=== PATIENT | female | born 1945 | race Caucasian/White ===

== ENCOUNTER 2025-03-06 20:18 | Emergency (ER) | payer OTHER ==
[~2025-03-06] VITALS: Ht 170.2 cm; Wt 67.0 kg
[2025-03-06 21:05] LABS: Basophils # (auto) 0.1 10 ^3/uL (0-0.2); Basophils % (auto) 1.8 % (0.0-2.0); Eosinophils # (auto) 0.3 10 ^3/uL (0-0.8); Eosinophils % (auto) 4.8 % (0.0-7.0); Hematocrit 42.2 % (36.0-46.0); Hemoglobin 13.5 g/dL (12.2-16.2); Lymphocytes # (auto) 1.1 10 ^3/uL (0.4-5.4); Lymphocytes % (auto) 21.1 % (10.0-50.0); Mean Corpuscular Hemoglobin 28.4 pg (28.0-32.0); Mean Corpuscular Volume 88.7 fL (80.0-100.0); Monocytes # (auto) 0.6 10 ^3/uL (0-1.3); Monocytes % (auto) 11.7 % (0.0-12.0); Neutrophils # (auto) 3.2 10 ^3/uL (1.6-8.6); Neutrophils % (auto) 60.6 % (37.0-80.0); Nucleated Red Blood Cells % 0.1 %; Platelet Count (auto) 229 10^3/uL (140-450); Red Blood Cells 4.75 10^6/uL (4.0-5.20); White Blood Cell 5.3 10^3/uL (4.4-10.8)
--- NOTE | 2025-03-06 21:13 | DVH ---
CT HEAD WITHOUT CONTRAST INDICATION: Headache/hallucinations COMPARISON: None TECHNIQUE: CT of the head without intravenous contrast. RADIATION DOSE: CTDIvol: mGy, DLP: mGy*cm FINDINGS: There is no evidence of intracranial hemorrhage, large infarct, extra-axial collection, mass effect, midline shift, herniation or hydrocephalus. 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 Minimal chronic white matter microvascular ischemic change. The ventri cles, sulci and cisterns are normal. Visualized paranasal sinuses and mastoid air cells are clear. So ft tissues and osseous structures are unremarkable. IMPRESSION: No acute intracranial abnormality identified.
--- NOTE | 2025-03-06 21:21 | ED.PDOC ---
History of Present Illness HPI Comments 79 y/o F presents with c/o headache, blurry vision, and visual hallucinations for the past several weeks. She comments on being told of her provider on having hydrocephaly. Denies any additional associated symptoms at this time. Patient was mildly hypertensive at arrival. Chief Complaint: Headache Time Seen by MD: 20:25 Reviewed Notes: Nurses Notes, Medications, Allergies Allergies: Coded Allergies: Tetanus Toxoid (Verified Allergy, Unknown, 03/06/25) Information Source: Patient Mode of Arrival: PLATFORM WALKER Severity: Moderate Timing: Weeks Duration: Since onset Prehospital treatment: None Past Medical History PAST MEDICAL HISTORY: HTN Surgical History: Denies all surgeries CASTING PLUG ASSEMBLER History: No Pertinent CASTING PLUG ASSEMBLER History Family History Family History: Reviewed,noncontributory to illness, No family hx of Cancer, No family hx of DM, No family hx of Heart tahir, No family hx of HTN, No family hx ofKidney tahir, No family hx of Liver tahir, No family hx of Lung tahir, No family hx of Stroke Social History Smoker: Non-Smoker Alcohol: Denies ETOH Use Drugs: Denies Drug Use Lives In: Home Constitutional: reports: fatigue, weakness; denies: chills, diaphoresis, fever, malaise, sweats, others EENTM: denies: blurred vision, double vision, ear bleeding, ear discharge, ear drainage, ear pain, ear ringing, eye pain, eye redness, hearing loss, mouth pain, mouth swelling, nasal discharge, nose bleeding, nose congestion, nose pain, photophobia, tearing, throat pain, throat swelling, voice changes, others Respiratory: denies: cough, hemoptysis, orthopnea, SOB at rest, shortness of breath, SOB with excertion, stridor, wheezing, others Cardiovascular: denies: chest pain, dizzy spells, diaphoresis, Dyspnea on exertion, edema, irregular heart beat, left arm pain, lightheadedness, palpitations, PND, syncope, others Gastrointestinal: denies: abdomen distended, abdominal pain, blood streaked bowels, constipated, diarrhea, dysphagia, difficulty swallowing, hematemesis, melena, nausea, poor appetite, poor fluid intake, rectal bleeding, rectal pain, vomiting, others Genitourinary: denies: abnormal vagina bleeding, burning, dyspareunia, dysuria, flank pain, frequency, hematuria, incontinence, pain, , vagina discharge, urgency, others Neurological: reports: headache, others (Hallucinations); denies: dizziness, f ainting, left sided numbness, left sided weakness, numbness, paresthesia, pre- existing deficit, right sided numbness, right sided weakness, seizure, speech problems, tingling, tremors, weakness Musculoskeletal: denies: back pain, gout, joint pain, joint swelling, muscle pain, muscle stiffness, neck pain, others Integumetry: denies: bruises, change in color, change in hair/nails, dryness, laceration, lesions, lumps, rash, wounds, others Allergic/Immunocompromised: denies: Difficulty Healing, Frequent Infections, Hives, Itching, others Hematologic/Lymphatic: denies: anemia, blood clots, easy bleeding, easy bruising, swollen glands, others Endocrine: denies: excessive hunger, excessive sweating, excessive thirst, excessive urination, flushing, intolerance to cold, intolerance to heat, unexplained weight gain, unexplained weight loss, others Psychiatric: denies: anxiety, bipolar disorder, depression, hopeless, panic disorder, schizophrenia, sleepless, suicidal, others All Other Systems: Reviewed and Negative (as per HPI) Physical Exam General Appearance: Mild Distress (Patient was in moderate distress due to hallucination concerns rather than definitive pain issues.), Normal HEENT: Head (Unremarkable cranial evaluation. No signs of trauma. No skull depressions or deformities.), Normal ENT Inspection, Pharynx Normal, TMs Normal Neck: Full Range of Motion, Non-Tender, Normal, Normal Inspection Respiratory: Chest Non-Tender, Lungs Clear, No Accessory Muscle Use, No Respiratory Distress, Normal Breath Sounds Cardiovascular: No Edema, No JVD, No Murmur, No Gallop, Normal Peripheral Pulses, Regular Rate/Rhythm Breast Exam: Deferred Gastrointestinal: No Organomegaly, Non Tender, No Pulsatile Mass, Normal Bowel Sounds, Soft Genitalia: Deferred Pelvic: Deferred Rectal: Deferred Extremities: No calf tenderness, Normal capillary refill, Normal inspection, Normal range of motion, Non-tender, No pedal edema Neurologic: Alert, No Motor Deficits, Normal Affect, Normal Mood, No Sensory Deficits Cerebellar Function: NOT DONE Reflexes: NOT DONE Skin: Dry, Normal Color, Warm Lymphatic: No Adenopathy Was a procedure done? Was a procedure done?: No Differential Dx Considerations may include: encephalopathy, schizophrenic disorder, electrolyte imbalance, UTI, viral syndrome, sepsis, urosepsis X-Ray, Labs, Meds, VS Vital Signs Date Time Temp Pulse Resp B/P (MAP) Pulse Ox O2 Delivery O2 Flow Rate FiO2 03/07/25 00:46 62 03/07/25 00:25 61 17 91/63 (72) 95 03/07/25 00:24 91/63 03/06/25 23:41 200/84 03/06/25 23:41 66 19 200/84 (122) 96 03/06/25 22:53 206/92 03/06/25 22:44 69 16 95 Room Air 03/06/25 22:44 98.4 69 16 206/97 (133) 95 98.4 206/92 (130) 03/06/25 20:31 98.5 72 18 156/68 (97) 97 98.5 Lab Test 03/06/25 22:56 03/06/25 22:54 03/06/25 20:45 Range/Units Urine Color Colorless Yellow Urine Clarity Turbid H Clear Urine pH 6.0 5.0-9.0 Urine Specific [place] 1.008 1.001-1.035 Urine Protein 1+ H Negative Urine Ketones Negative Negative Urine Blood Negative Negative /uL Urine Nitrite Negative Negative Urine Bilirubin Negative Negative Urine Urobilinogen Normal Negative mg/dL Urine Leukocyte Esterase 3+ Negative /uL Urine RBC <1 0 - 4 /hpf Urine Microscopic WBC 284 H 0-5 /HPF Urine Squamous Epithelial Cells Few <5 /hpf Urine Bacteria Many H None Seen /hpf Urine Mucus Few None Seen Urine Glucose Normal Normal mg/dL Urine Opiates Screen Neg NEGATIVE Urine Fentanyl Screen Neg NEGATIVE Urine Barbiturates Screen Neg NEGATIVE Urine Phencyclidine Screen Neg NEGATIVE Urine Amphetamines Screen Neg NEGATIVE Urine Benzodiazepines Screen Neg NEGATIVE Urine Cocaine Screen Neg NEGATIVE Urine Cannabinoids Screen Neg NEGATIVE Lactic Acid Level 2.3 *H 2.6 *H 0.4-2.0 mmol/L White Blood Count 5.3 4.4-10.8 10^3/uL Red Blood Count 4.75 4.0-5.20 10^6/uL Hemoglobin 13.5 12.2-16.2 g/dL Hematocrit 42.2 36.0-46.0 % Mean Corpuscular Volume 88.7 80.0-100.0 fL Mean Corpuscular Hemoglobin 28.4 28.0-32.0 pg Mean Corpuscular Hemoglobin Concent 32.0 32.0-36.0 g/dL Red Cell Distribution Width 15.0 H 11.8-14.3 % Platelet Count 229 140-450 10^3/uL Mean Platelet Volume 7.8 6.9-10.8 fL Neutrophils (%) (Auto) 60.6 37.0-80.0 % Lymphocytes (%) (Auto) 21.1 10.0-50.0 % Monocytes (%) (Auto) 11.7 0.0-12.0 % Eosinophils (%) (Auto) 4.8 0.0-7.0 % Basophils (%) (Auto) 1.8 0.0-2.0 % Neutrophils # (Auto) 3.2 1.6-8.6 10 ^3/uL Lymphocytes # (Auto) 1.1 0.4-5.4 10 ^3/uL Monocytes # (Auto) 0.6 0-1.3 10 ^3/uL Eosinophils # (Auto) 0.3 0-0.8 10 ^3/uL Basophils # (Auto) 0.1 0-0.2 10 ^3/uL Nucleated Red Blood Cells 0.1 % Sodium Level 143 136-145 mmol/L Potassium Level 4.0 3.5-5.1 mmol/L Chloride Level 104 98-107 mmol/L Carbon Dioxide Level 28 20-31 mmol/L Anion Gap 11 5-15 Blood Urea Nitrogen 14 9-23 mg/dL Creatinine 0.83 0.550-1.02 mg/dL Glomerular Filtration Rate Calc 72 >90 mL/min BUN/Creatinine Ratio 16.9 10.0-20.0 Serum Glucose 72 L 74-106 mg/dL Calcium Level 9.8 8.7-10.4 mg/dL Total Bilirubin 0.5 0.2-1.0 mg/dL Aspartate Amino Transferase (AST) 38 13-40 U/L Alanine Aminotransferase (ALT) 27 7-40 U/L Alkaline Phosphatase 74 46-116 U/L Troponin I High Sensitivity 8 </=34 ng/L Total Protein 6.7 5.7-8.2 g/dL Albumin 4.5 3.2-4.8 g/dL Current Medications Medications (Trade) Dose Ordered Sig/Toribio Route Start Time Stop Time Status Last Admin Acetaminophen/ Hydrocodone Bitart ([place] 10/325MG Tab) 1 tab ONCE ONCE PO 03/06/25 20:30 03/06/25 20:31 DC 03/06/25 22:53 Clonidine HCl (Catapres Tablet) 0.2 mg ONCE ONCE PO 03/06/25 23:00 03/06/25 23:01 DC 03/06/25 22:53 X-Ray, Labs, Meds, VS Comment All studies performed the ED were evaluated by me personally. Serum laboratories revealed a mildly elevated lactic acid. Patient's urine confirmed a significant urinary tract infection that may be responsible for the neurologic concerns. CT of the head was unremarkable for any acute intracranial process. No signs of malformation or neoplasm. Patient will be admitted for IV antibiotics and possible neuro evaluation based on response to those medications. Additionally, patient's blood pressure increased and therefore, required multiple rounds of clonidine to return to an acceptable zone. Patient may require a cardiac consultation as well. Patient is a [facility] patient and therefore, I spoke with Dr. Bg Olivera. Advised him of patient presentation as well as laboratory and imaging findings. He agreed to accept the patient is a transfer. Authorization number [id number]. Time of 1ST Reevaluation: 00:33 Reevaluation 1ST: Unchanged Consultation: PCP, Cardiology Patient Education/Counseling: Diagnosis, Treatment Family Education/Counseling: Diagnosis, Treatment, No Family Present Departure 1 Departure Time of Disposition: 00:35 Impression: Primary Impression: UTI (urinary tract infection) Additional Impression: Metabolic encephalopathy Disposition: ADMITTED INPATIENT Condition: Stable Discharged With: Self Critical Care Note Critical Care Time?: No Stability Stability form required: No Heart Score Heart Score: Heart Score Response (Comments) Value History Slightly Suspicious 0 EKG Repolarization Disturb 1 Age >65 2 Risk Factors 1 or 2 risk factors 1 Troponin Normal limit 0 Total 4 I personally scribed for JONATHAN COREAS PAC ([email or web address]) on 03/06/25 at 21:21. Electronically submitted by Daniel Escalona ([email or web address]). JONATHAN COREAS PAC Mar 06, 2025 21:21
[2025-03-06 21:22] LABS: Bilirubin, Total 0.5 mg/dL (0.2-1.0)
[2025-03-06 21:56] LABS: Albumin 4.5 g/dL (3.2-4.8); Alkaline Phosphatase 74 U/L (46-116); Anion Gap 11 (5-15); BUN/Creatinine Ratio 16.9 (10.0-20.0); Calcium 9.8 mg/dL (8.7-10.4); Carbon Dioxide 28 mmol/L (20-31); Chloride 104 mmol/L (98-107); Sodium 143 mmol/L (136-145); Total Protein 6.7 g/dL (5.7-8.2)
[2025-03-06 21:58] LABS: Alanine Aminotransferase 27 U/L (7-40); Blood Urea Nitrogen 14 mg/dL (9-23); Glucose 72 mg/dL (74-106)
[2025-03-06 22:01] LABS: Lactic Acid w/Reflex 2.6 mmol/L (0.4-2.0)
[2025-03-06 22:11] LABS: Aspartate Aminotransferase 38 U/L (13-40)
[2025-03-06] MEDS: HYDROcodone-ACET 10/325MG TAB PO ONE (22:53)
[2025-03-06] MEDS: cloNIDine HCL 0.1 MG TAB PO ONE (22:53)
[2025-03-06 23:37] LABS: Urine Bacteria MANY /hpf (None Seen); Urine Blood Negative /uL (Negative); Urine Clarity Turbid (Clear); Urine Color Colorless (Yellow); Urine Mucus FEW (None Seen); Urine Protein, UAD 1+ (Negative); Urine Specific Gravity 1.008 (1.001-1.035); Urine Squamous Epithelial Cell FEW /hpf (<5); Urine Urobilinogen Normal (Negative); Urine WBC 284 /HPF (0-5)
[2025-03-06 23:40] LABS: Benzodiazephine Screen, Urine Neg (NEGATIVE); Opiate Scree,Urine Neg (NEGATIVE)
[2025-03-07 00:21] LABS: Amphetamine Screen, Urine Neg (NEGATIVE); Barbiturate Scree,Urine Neg (NEGATIVE); Cannabinoid Screen, Urine Neg (NEGATIVE); Cocaine Screen, Urine Neg (NEGATIVE); Phencyclidine Screen, Urine Neg (NEGATIVE)
[2025-03-07] MEDS: cloNIDine HCL 0.1 MG TAB PO ONE (00:24)
[2025-03-07] MEDS: SODIUM CHLORIDE 0.9% 1,000 ML IV ONE (01:39)
[2025-03-07] MEDS: cefTRIAXone 1GM/50ML D5W 50 ML IV ONE (01:39)
[2025-03-07 01:57] VITALS: PULSE 58; RESP 14; O2SAT 97
[2025-03-07 06:52] VITALS: BP 121/52; PULSE 61; RESP 19; TEMP 98.2; O2SAT 99
--- NOTE | 2025-03-08 14:42 | ECG ---
[facility] Test Date: 2025-03-07 Test Time: 00:46:18 Pat Name: ALYSSA LOFTON Department: ER Room: Gender: F Infant Teacher: ER : 1945 Requested By: JONATHAN CROEAS Order Number: [id number] Reading MD: Measurements Intervals [place] Rate: 62 P: 65 CO: 168 QRS: 60 QRSD: 101 T: 82 QT: 441 QTc: 448 Interpretive Statements Sinus rhythm LVH with secondary repolarization abnormality Anterior Q waves, possibly due to LVH Please click the below link to view image of tracing.
== END 2025-03-07 07:03 | disposition short-term general hospital (02) ==
LOC: ER 20:22
DX: N39.0 Urinary tract infection, site not specified (principal); G93.41 Metabolic encephalopathy; I10 Essential (primary) hypertension; Z88.7 Allergy status to serum and vaccine; Z79.899 Other long term (current) drug therapy
CPT/HCPCS: 36415; 70450; 80053; 80307; 81001; 83605; 84484; 85025; 93005; 96365; 99285; J0696

== ENCOUNTER 2025-08-06 15:53 | Emergency (ER) | payer OTHER ==
[~2025-08-06] VITALS: Ht 157.5 cm; Wt 72.7 kg
[2025-08-06] MEDS: SODIUM CHLORIDE 0.9% 1,000 ML IV ONE (16:10)
--- NOTE | 2025-08-06 16:15 | ED.PDOC ---
HPI Comments 79 y.o female with PMHx of CAD and HTN, presents to the ED via EMS for an evaluation of hypotension. Patient reports a nurse set up an appointment to get her BP evaluated at the [facility] today, states while she arrived her BP was taken and it was found low prompting a 911 call. EMS reports patient displayed orthostatic hypotension on scene with patient stating dizziness on exertion that subsides laying or sitting down. She denies any chest pain, SOB. Vital signs were stable. Chief Complaint: Low Blood Pressure Time Seen by MD: 16:00 Reviewed Notes: Nurses Notes Allergies: Coded Allergies: Tetanus Toxoid (Verified Allergy, Unknown, 03/06/25) Information Source: Patient, Emergency Med Personnel Mode of Arrival: EMS Severity: Moderate Timing: Hours Duration: Since onset Prehospital treatment: Treatment Onset: At Rest Cardiac Risk Factors: HTN Associated Signs and Symptoms: N/V Past Medical History PAST MEDICAL HISTORY: CAD, HTN Surgical History: Denies all surgeries OPTICAL GLASS WET INSPECTOR History: No Pertinent OPTICAL GLASS WET INSPECTOR History Family History Family History: Reviewed,noncontributory to illness, No family hx of Cancer, No family hx of DM, No family hx of Heart tahir, No family hx of HTN, No family hx ofKidney tahir, No family hx of Liver tahir, No family hx of Lung tahir, No family hx of Stroke Social History Smoker: Non-Smoker Alcohol: Denies ETOH Use Drugs: Denies Drug Use Lives In: Home Constitutional: denies: chills, diaphoresis, fatigue, fever, malaise, sweats, weakness, others EENTM: denies: blurred vision, double vision, ear bleeding, ear discharge, ear drainage, ear pain, ear ringing, eye pain, eye redness, hearing loss, mouth pain, mouth swelling, nasal discharge, nose bleeding, nose congestion, nose pain, photophobia, tearing, throat pain, throat swelling, voice changes, others Respiratory: denies: cough, hemoptysis, orthopnea, SOB at rest, shortness of breath, SOB with excertion, stridor, wheezing, others Cardiovascular: denies: chest pain, dizzy spells, diaphoresis, Dyspnea on exertion, edema, irregular heart beat, left arm pain, lightheadedness, palpitations, PND, syncope, others Gastrointestinal: denies: abdomen distended, abdominal pain, blood streaked bowels, constipated, diarrhea, dysphagia, difficulty swallowing, hematemesis, melena, nausea, poor appetite, poor fluid intake, rectal bleeding, rectal pain, vomiting, others Genitourinary: denies: abnormal vagina bleeding, burning, dyspareunia, dysuria, flank pain, frequency, hematuria, incontinence, pain, , vagina discharge, urgency, others Neurological: reports: dizziness; denies: fainting, headache, left sided numbness, left sided weakness, numbness, paresthesia, pre-existing deficit, right sided numbness, right sided weakness, seizure, speech problems, tingling, tremors, weakness, others Musculoskeletal: denies: back pain, gout, joint pain, joint swelling, muscle pain, muscle stiffness, neck pain, others Integumetry: denies: bruises, change in color, change in hair/nails, dryness, laceration, lesions, lumps, rash, wounds, others Allergic/Immunocompromised: denies: Difficulty Healing, Frequent Infections, Hives, Itching, others Hematologic/Lymphatic: denies: anemia, blood clots, easy bleeding, easy bruising, swollen glands, others Endocrine: denies: excessive hunger, excessive sweating, excessive thirst, excessive urination, flushing, intolerance to cold, intolerance to heat, unexplained weight gain, unexplained weight loss, others Psychiatric: denies: anxiety, bipolar disorder, depression, hopeless, panic disorder, schizophrenia, sleepless, suicidal, others All Other Systems: Reviewed and Negative Physical Exam General Appearance: Mild Distress (Patient was in moderate distress due to weakness at time of evaluation.), Normal HEENT: Normal ENT Inspection, Pharynx Normal, TMs Normal Neck: Full Range of Motion, Non-Tender, Normal, Normal Inspection Respiratory: Chest Non-Tender, No Accessory Muscle Use, No Respiratory Distress, Other (Mild right middle lobe wheeze appreciated on auscultation.) Cardiovascular: No Edema, No JVD, No Murmur, No Gallop, Normal Peripheral Pulses, Regular Rate/Rhythm Breast Exam: Deferred Gastrointestinal: No Organomegaly, Non Tender, No Pulsatile Mass, Normal Bowel Sounds, Soft Genitalia: Deferred Pelvic: Deferred Rectal: Deferred Extremities: No calf tenderness, Normal capillary refill, Normal inspection, Normal range of motion, Non-tender, No pedal edema Neurologic: Alert, No Motor Deficits, Normal Affect, Normal Mood, No Sensory D eficits Cerebellar Function: NOT DONE Reflexes: NOT DONE Skin: Dry, Normal Color, Warm Lymphatic: No Adenopathy Was a procedure done? Was a procedure done?: No CP Differential Dx Differential Diagnosis: N/A Differential Diagnosis: HTN Essential, HTN Accelerated, HTN Encephalopathy, Other (Sepsis, electrolyte abnormality, acute coronary syndrome, pneumonia) X-Ray, Labs, Meds, VS Vital Signs Date Time Temp Pulse Resp B/P (MAP) Pulse Ox O2 Delivery O2 Flow Rate FiO2 08/06/25 17:30 59 18 150/69 (96) 96 08/06/25 17:13 60 08/06/25 16:49 57 18 147/67 (93) 96 08/06/25 16:04 98.2 62 15 121/68 92 98.2 Lab Test 08/06/25 19:12 08/06/25 17:23 08/06/25 16:45 08/06/25 16:17 Range/Units Troponin I High Sensitivity 7 8 8 </=34 ng/L Urine Color Light-yellow Yellow Urine Clarity Turbid H Clear Urine pH 5.5 5.0-9.0 Urine Specific [place] 1.008 1.001-1.035 Urine Protein Negative Negative Urine Ketones Negative Negative Urine Blood Negative Negative /uL Urine Nitrite Negative Negative Urine Bilirubin Negative Negative Urine Urobilinogen Normal Negative mg/dL Urine Leukocyte Esterase 2+ Negative /uL Urine RBC <1 0 - 4 /hpf Urine Microscopic WBC 18 H 0-5 /HPF Urine Squamous Epithelial Cells Mod <5 /hpf Urine Bacteria Mod H None Seen /hpf Urine Glucose Normal Normal mg/dL White Blood Count 5.6 4.4-10.8 10^3/uL Red Blood Count 4.40 4.0-5.20 10^6/uL Hemoglobin 13.1 12.2-16.2 g/dL Hematocrit 39.4 36.0-46.0 % Mean Corpuscular Volume 89.7 80.0-100.0 fL Mean Corpuscular Hemoglobin 29.7 28.0-32.0 pg Mean Corpuscular Hemoglobin Concent 33.1 32.0-36.0 g/dL Red Cell Distribution Width 14.8 H 11.8-14.3 % Platelet Count 223 140-450 10^3/uL Mean Platelet Volume 7.4 6.9-10.8 fL Neutrophils (%) (Auto) 66.1 37.0-80.0 % Lymphocytes (%) (Auto) 19.6 10.0-50.0 % Monocytes (%) (Auto) 9.3 0.0-12.0 % Eosinophils (%) (Auto) 3.7 0.0-7.0 % Basophils (%) (Auto) 1.3 0.0-2.0 % Neutrophils # (Auto) 3.7 1.6-8.6 10 ^3/uL Lymphocytes # (Auto) 1.1 0.4-5.4 10 ^3/uL Monocytes # (Auto) 0.5 0-1.3 10 ^3/uL Eosinophils # (Auto) 0.2 0-0.8 10 ^3/uL Basophils # (Auto) 0.1 0-0.2 10 ^3/uL Nucleated Red Blood Cells 0.1 % D-Dimer, Quantitative 0.53 H 0.0-0.49 mg/L FEU Sodium Level 137 136-145 mmol/L Potassium Level 3.6 3.5-5.1 mmol/L Chloride Level 103 98-107 mmol/L Carbon Dioxide Level 22 20-31 mmol/L Anion Gap 12 5-15 Blood Urea Nitrogen 41 H 9-23 mg/dL Creatinine 1.99 H 0.550-1.02 mg/dL Glomerular Filtration Rate Calc 25 >90 mL/min BUN/Creatinine Ratio 20.6 H 10.0-20.0 Serum Glucose 126 H 74-106 mg/dL Calcium Level 8.8 8.7-10.4 mg/dL Total Bilirubin 0.5 0.2-1.0 mg/dL Aspartate Amino Transferase (AST) 31 13-40 U/L Alanine Aminotransferase (ALT) 32 7-40 U/L Alkaline Phosphatase 70 46-116 U/L B-Type Natriuretic Peptide 15.54 0-100 pg/mL Total Protein 5.8 5.7-8.2 g/dL Albumin 3.6 3.2-4.8 g/dL Current Medications Medications (Trade) Dose Ordered Sig/Toribio Route Start Time Stop Time Status Last Admin Sodium Chloride 1,000 ml @ 150 mls/hr Q6H40M ONCE IV 08/06/25 16:15 08/06/25 22:54 08/06/25 16:10 X-Ray, Labs, Meds, VS Comment All studies performed the ED were evaluated by me personally. Serum studies revealed what appears to be an acute renal injury concern as well as a urinary tract infection. Imaging studies revealed a consolidation indicative of a community-acquired pneumonia and EKG revealed a sinus rhythm with a rate of 60. Left atrial enlargement was noted with a [place] interval 169 and QT interval 463. Due to the multiple comorbidities discovered as well as the orthostatic hypotensive concerns, patient will be admitted for management and cardiac evaluation. This patient's insurance is [employer] and therefore, I spoke with the Dr. Evette Pitt at [facility]. Advised of EMT report as well as laboratory and imaging studies at our facility. She agreed to accept the patient is a transfer. She advised dispensing a one time dose of Zosyn to address her antibiotic resistant urinary tract infection concerns. Authorization number is [id number]. Time of 1ST Reevaluation: 20:19 Reevaluation 1ST: Improved Consultation: PCP, Cardiology Patient Education/Counseling: Diagnosis, Treatment, Prognosis Family Education/Counseling: Diagnosis, Treatment, No Family Present SEPSIS Sepsis Screen Recent Procedure: No On Antibiotic Therapy: No Respiratory Rate >20: No Heart Rate >90: No Temp<36 C (96.8 F) or >38.3 C: No SBP <90 or MAP <65 mmHG: No New Acute Mental Status Change: No Is the patient on CPAP, BIPAP,: No Physician Orders Chest Portable (08/06/25 16:03) Heplock Iv (08/06/25 16:03) Electrocardigram (08/06/25 16:03) Continuous Ekg Monitoring 08,12,16,20,00,04 (08/06/25 16:03) Sodium Chloride 0.9% (08/06/25 16:15) Levofloxacin 500mg (Levaquin 500mg/ 100m (08/06/25 20:30) Piperacillin-Tazob 3.375gm (Zosyn 3.375g (08/06/25 21:00) Vital Signs Date Time Temp Pulse Resp B/P (MAP) Pulse Ox O2 Delivery O2 Flow Rate FiO2 08/06/25 17:30 59 18 150/69 (96) 96 08/06/25 17:13 60 08/06/25 16:49 57 18 147/67 (93) 96 08/06/25 16:04 98.2 62 15 121/68 92 98.2 Laboratory Tests Test 08/06/25 16:17 White Blood Count 5.6 10^3/uL (4.4-10.8) Medications Medications Dose Ordered Sig/Toribio Route Start Time Stop Time Status Last Admin Dose Admin Sodium Chloride 1,000 ml @ 150 mls/hr Q6H40M ONCE IV 08/06/25 16:15 08/06/25 22:54 08/06/25 16:10 Departure 1 Departure Time of Disposition: 20:20 Impression: Primary Impression: Pneumonia Additional Impressions: Urinary tract infection Orthostatic hypotension Acute renal injury Disposition: ADMITTED INPATIENT Condition: Stable Discharged With: Self Critical Care Note Critical Care Time?: No Stability Stability form required: No Heart Score Heart Score: Heart Score Response (Comments) Value History Slightly Suspicious 0 EKG Repolarization Disturb 1 Age >65 2 Risk Factors 1 or 2 risk factors 1 Troponin Normal limit 0 Total 4 I personally scribed for JONATHAN COREAS PAC ([email or web address]) on 08/06/25 at 16:15. Electronically submitted by Maile Song ([email or web address]). JONATHAN COREAS PAC Aug 06, 2025 16:15
[2025-08-06 16:25] LABS: Hematocrit 39.4 % (36.0-46.0); Hemoglobin 13.1 g/dL (12.2-16.2); Mean Corpuscular Hemoglobin 29.7 pg (28.0-32.0); Mean Corpuscular Volume 89.7 fL (80.0-100.0); Nucleated Red Blood Cells % 0.1 %
--- NOTE | 2025-08-06 16:39 | DVH ---
CHEST RADIOGRAPH Indication: Shortness of breath Technique: XY CHEST PORTABLE COMPARISON: None FINDINGS: The cardiac silhouette is unremarkable. Interstitial airspace opacities which could represent sequela of pulmonary edema, atypical infection, chronic lung changes/disease. The lungs demonstrate bilateral patchy airspace opacities. The pulmonary vasculature is prominent. Th ere is no pleural effusion. There is no pneumothorax. IMPRESSION: As above
[2025-08-06 16:41] LABS: Alanine Aminotransferase 32 U/L (7-40); Alkaline Phosphatase 70 U/L (46-116); Anion Gap 12 (5-15); BUN/Creatinine Ratio 20.6 (10.0-20.0); Calcium 8.8 mg/dL (8.7-10.4); Carbon Dioxide 22 mmol/L (20-31); Chloride 103 mmol/L (98-107); Potassium 3.6 mmol/L (3.5-5.1); Sodium 137 mmol/L (136-145); Total Protein 5.8 g/dL (5.7-8.2)
[2025-08-06 16:42] LABS: Albumin 3.6 g/dL (3.2-4.8); Bilirubin, Total 0.5 mg/dL (0.2-1.0)
[2025-08-06 16:46] LABS: Blood Urea Nitrogen 41 mg/dL (9-23); Glucose 126 mg/dL (74-106)
[2025-08-06 16:49] VITALS: PULSE 68; RESP 17; O2SAT 95
[2025-08-06 17:26] LABS: Urine Protein, UAD Negative (Negative)
[2025-08-06] MEDS: PIPERACILLIN-TAZOB 3.375GM 100 ML IV ONE (21:34)
[2025-08-06] MEDS ORDERED: cloNIDine 0.1 mg/24hr 7 DAY PATCH TD ONE (22:30)
[2025-08-06 23:10] VITALS: BP 112/91; PULSE 67; RESP 17; TEMP 98.1; O2SAT 95
--- NOTE | 2025-08-09 10:47 | ECG ---
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
== END 2025-08-06 23:10 | disposition short-term general hospital (02) ==
LOC: ER 15:53 → EDBD 15:53 → EDUNIT# 15:53 → ER 23:10
DX: J18.9 Pneumonia, unspecified organism (principal); N39.0 Urinary tract infection, site not specified; I95.1 Orthostatic hypotension; I11.9 Hypertensive heart disease without heart failure; N17.9 Acute kidney failure, unspecified; I25.10 Atherosclerotic heart disease of native coronary artery without angina pectoris; Z88.7 Allergy status to serum and vaccine
CPT/HCPCS: 36415; 71045; 80053; 81001; 83880; 84484; 85025; 85379; 93005; 96361; 96365; 96368; 99285; J1956; J2543; J7030

== ENCOUNTER 2025-09-30 18:25 | Emergency (ER) | payer OTHER ==
[~2025-09-30] VITALS: Ht 172.7 cm; Wt 70.4 kg
--- NOTE | 2025-09-30 19:42 | ED.PDOC ---
General HPI Comments HPI: 80 year old female who came to ER for flank pains. Patient has been complaining of right flank pain for over 10 days with notable decrease in urination. Was seen at [facility] urgent [facility] twice, diagnostics done, diagnosed with hydronephrosis and kidney infection and was prescribed antibiotics however patient only started taking them today. patient had two days of fever, nausea and diarrhea as well however these symptoms stopped in the last 24 hours. Past Medical History: Hypertension, dyslipidemia, heart valve stenosis, back fusion, UTI Surgical history: Hysterectomy, cholecystectomy, partial right kidney nephrectomy Family history: Unremarkable Personal and Social History: Unremarkable REVIEW OF SYSTEMS: PHYSICAL EXAM: HPI: Poor Historian. REVIEW OF SYSTEMS: CONSTITUTIONAL: Denies acute: fever, diaphoresis, chills, generalized weakness. HEAD: Denies acute: headache, photophobia Eyes: Denies acute: Double vision, vision loss, eye pain, eye discharge. EARS: Denies acute: tinnitus, hearing loss, ear discharge, ear pain, THROAT: Denies acute: sore throat, swelling, difficulty swallowing , pain with swallowing, change in voice. NECK: Denies acute: neck pain, neck swelling, stiff neck. HEART: Denies acute : chest pain, palpitations, LUNGS: Denies acute: SOB, wheezing, cough, hemoptysis ABDOMEN: Denies acute: abdominal pain, Nausea, Vomiting, diarrhea, melena , hematemesis, hematochezia SKIN: Denies acute: rash, redness, lesions, itchiness. EXTREMITIES: Denies acute: calf pain, numbness, tingling, weakness, denies pain in extremity. Denies acute: Low back pain. Neuro: Denies acute: focal neurological deficit, motor or sensory focal neurological deficit, tremors, seizure like activity, confusion, dizziness, change in mental status, loss of bowel or bladder function, cauda equina like symptoms. : Denies acute: dysuria, hematuria, flank pain, increase in urinary frequency. PSYCH: Denies acute: hallucination, suicidal ideation, homicidal ideation. FEMALE: Denies acute: abnormal vaginal bleeding, foul odor, unusual discharge. PHYSICAL EXAM: General: --------acute distress, awake and alert. Head: normocephalic, atraumatic. No raccoon's eyes, no pratt sign. Neck: supple, trachea is midline, no swelling. Throat: Normal phonation. Eyes:, no erythema, no purulent discharge, no proptosis, no icterus. Heart: regular rate, regular rhythm, no significant murmur appreciated. Lungs: no apparent respiratory distress, Able to speak in full sentences. No wheezing, no rhonchi, no crackles. No stridors Clear to auscultation bilaterally. Abdomen: non tender to palpation, non distended, soft, no guarding, no rebound, + bowel sounds. Neuro: Awake, Alert, oriented to name, self, situation, follows commands GCS=15. Speech is normal. Skin: no petechia, no purpura, no cyanosis, non-pale, not jaundice. Lower extremities: --no - Pitting edema no deformity, no focal swelling, no calf TTP. Makes eye contact. moves all four extremities. Face: no apparent facial droop. No CVA tenderness to percussion bilaterally. Ambulating in the ED independently. Ears: Normal appearing TM b/l, Stroke: finger to nose cerebellar testing is intact. No pronator drift. Symmetrical edging catcher muscle strength b/l PERRLA, EOM-I CN 2-12 are grossly intact, Pedal pulses are palpable. No nystagmus. No nuchal rigidity, Kernig's sign, Brudzinski's sign, no meningeal signs. ED COURSE: DISCLAIMER: This medical document was created using an electronic medical record system with voice recognition software and computerized dictation system. Although this document has been carefully reviewed, there might still be some phonetic and typographical errors. Occasional wrong-word or "sound-alike" substitutions may have occurred due to the inherent limitations of voice recognition software. These areas are purely typographical due to imperfections of the software programs and do not reflect any compromise in the patient's medical care. Please read the chart carefully and recognize, using context, where these substitutions have occurred. Chief Complaint: Urinary Time Seen by MD: 19:42 Reviewed notes: Nurses Notes, Allergies Allergies: Coded Allergies: Tetanus Toxoid (Verified Allergy, Unknown, 03/06/25) Information Source: Patient Mode of Arrival: Ambulatory Past Medical History PAST MEDICAL HISTORY: CAD, HTN Surgical History: Denies all surgeries FRUIT CUTTER History: No Pertinent FRUIT CUTTER History Family History Family History: Reviewed,noncontributory to illness, No family hx of Cancer, No family hx of DM, No family hx of Heart tahir, No family hx of HTN, No family hx ofKidney tahir, No family hx of Liver tahir, No family hx of Lung tahir, No family hx of Stroke Social History Smoker: Non-Smoker Alcohol: Denies ETOH Use Drugs: Denies Drug Use Lives In: Home Was a procedure done? Was a procedure done?: No Differential Diagnosis Kidney stone (Female): Other (Flank Pain;DDX include Nephrolethiasis, obstructive uropathy, kidney cancer, renal infarct, intraabdominal neoplasm, lower lobe pneumonia, retroperitoneal hemorrhage, pancreatitis, aneurysm, dissection, musculoskeletal, rib contusion/trauma, hematoma, PYLONEPHRITIS, muscle strain, spinal disease. ) Urinary Problem (Female): Appendicitis, Aortic dissection, Impaction, PID, Pos t-op complication, Pyelonephritis, Urinary retention, Urolithiasis, UTI, Vaginitis X-Ray, Labs, Meds, VS Vital Signs Date Time Temp Pulse Resp B/P (MAP) Pulse Ox O2 Delivery O2 Flow Rate FiO2 09/30/25 23:16 97.5 57 16 153/80 (104) 99 97.5 09/30/25 21:47 74 18 98 Room Air* 0 21 09/30/25 21:39 103/62 09/30/25 21:19 98.4 74 16 103/62 (76) 94 98.4 09/30/25 18:27 98.3 95 16 135/56 82 98.3 Lab Test 09/30/25 20:49 09/30/25 19:00 Range/Units Lactic Acid Level 2.3 *H 2.1 *H 0.4-2.0 mmol/L White Blood Count 8.0 4.4-10.8 10^3/uL Red Blood Count 4.52 4.0-5.20 10^6/uL Hemoglobin 13.2 12.2-16.2 g/dL Hematocrit 39.3 36.0-46.0 % Mean Corpuscular Volume 87.0 80.0-100.0 fL Mean Corpuscular Hemoglobin 29.2 28.0-32.0 pg Mean Corpuscular Hemoglobin Concent 33.6 32.0-36.0 g/dL Red Cell Distribution Width 14.9 H 11.8-14.3 % Platelet Count 293 140-450 10^3/uL Mean Platelet Volume 7.8 6.9-10.8 fL Neutrophils (%) (Auto) 71.6 37.0-80.0 % Lymphocytes (%) (Auto) 16.0 10.0-50.0 % Monocytes (%) (Auto) 10.0 0.0-12.0 % Eosinophils (%) (Auto) 1.2 0.0-7.0 % Basophils (%) (Auto) 1.2 0.0-2.0 % Neutrophils # (Auto) 5.7 1.6-8.6 10 ^3/uL Lymphocytes # (Auto) 1.3 0.4-5.4 10 ^3/uL Monocytes # (Auto) 0.8 0-1.3 10 ^3/uL Eosinophils # (Auto) 0.1 0-0.8 10 ^3/uL Basophils # (Auto) 0.1 0-0.2 10 ^3/uL Nucleated Red Blood Cells 0.0 % Sodium Level 138 136-145 mmol/L Potassium Level 4.2 3.5-5.1 mmol/L Chloride Level 97 L 98-107 mmol/L Carbon Dioxide Level 28 20-31 mmol/L Anion Gap 13 5-15 Blood Urea Nitrogen 28 H 9-23 mg/dL Creatinine 3.16 H 0.550-1.02 mg/dL Glomerular Filtration Rate Calc 14 >90 mL/min BUN/Creatinine Ratio 8.9 L 10.0-20.0 Serum Glucose 86 74-106 mg/dL Calcium Level 9.7 8.7-10.4 mg/dL Total Bilirubin 0.6 0.2-1.0 mg/dL Aspartate Amino Transferase (AST) 26 13-40 U/L Alanine Aminotransferase (ALT) 21 7-40 U/L Alkaline Phosphatase 85 46-116 U/L Total Protein 7.5 5.7-8.2 g/dL Albumin 4.4 3.2-4.8 g/dL Current Medications Medications (Trade) Dose Ordered Sig/Toribio Route Start Time Stop Time Status Last Admin Ceftriaxone Sodium 50 ml @ 100 mls/hr ONCE ONCE IV 09/30/25 19:00 09/30/25 19:29 DC 09/30/25 21:35 Sodium Chloride 1,000 ml @ 1,000 mls/hr Q1H ONCE IV 09/30/25 20:00 09/30/25 20:59 DC 09/30/25 21:37 Fentanyl Citrate 50 mcg ONCE ONCE IV 09/30/25 21:30 09/30/25 21:31 DC 09/30/25 21:39 Ondansetron HCl (Zofran) 4 mg ONCE ONCE IV 09/30/25 21:30 09/30/25 21:31 DC 09/30/25 21:37 [place] [address] Ph: [phone] DIAGNOSTIC IMAGING Diagnostic Imaging Report : [id number] Signed PATIENT: ALYSSA LOFTON ACCT: [id number] UNIT: [id number] : 1945 LOC: ER ROOM / BED: / AGE / SEX: 80 / F ADM STATUS: REG ER SERVICE 071 ORDERING PHYSICIAN: ABE CALDERON DO PROCEDURE(s): ABPL - CT AB PEL WO CON-NO ORAL OR IV REASON: Urinary retention, flank pain ORDER NUMBER(s): [id number], ACCESSION NUMBER(s): [id number] Exam: CT CT AB PEL WO CON-NO ORAL OR IV History: Urinary retention, flank pain Comparison Study: CT ABDOMEN PELVIS WITHOUT on DOS: 11/19/24 Technique: Multidetector spiral CT of the abdomen was performed from lung bases to pubic symphysis. Imaging was performed without IV contrast. Axial, coronal and sagittal multiplanar reformats were obtained from the axial data set by the technologist. Radiation Dose : 1. Abdomen/Pelvis: CTDIvol 9.72 mGy, DLP 509.01 mGy*cm. Findings: Evaluation of solid organs is limited due to lack of intravenous contrast use. Lung Bases: No acute or significant lung base finding. Normal heart size. No pleural or pericardial effusion. Liver: The liver is normal in size. No focal lesions. Gallbladder and Biliary Tree: Gallbladder is surgically absent. Spleen: Unremarkable Pancreas: The pancreas is grossly normal in appearance. Adrenal Glands: Unremarkable Kidneys: Surgical clips surrounding the right kidney. No stones or hydronephrosis. Bladder: Grossly unremarkable for degree of distention. Bowel: The stomach is grossly normal in appearance. Small bowel and colon are normal in caliber and distribution. The appendix is not visualized; however, no secondary findings of acute appendicitis identified. Ascites: Absent Lymphadenopathy: No mesenteric, retroperitoneal or periportal lymphadenopathy. Abdominal Wall and Mesentery: Unremarkable. Vasculature: The visualized abdominal aorta is normal in size and caliber. Evaluation of abdominal and pelvic vessels is limited due to lack of intravenous contrast. Pelvic Organs: Unremarkable Musculoskeletal: No aggressive focal bony lesions, acute fractures or dislocation. IMPRESSION: Urinary bladder is nondistended. No hydronephrosis or other acute abnormality. Radiation optimization: All CT scans at this facility use at least one of these dose optimization techniques: automated exposure control mA and/or kV adjustment per patient size (includes targeted exams where dose is matched to clinical indication) or iterative reconstruction. ATED BY: LU VILLAGOMEZ MD DICTATED DATE/TIME: 09/30/251948 SIGNED BY: LU VILLAGOMEZ MD SIGNED DATE/TIME: 09/30/251948 CC: Time of 1ST Reevaluation: 19:29 Reevaluation 1ST: Unchanged Time of 2ND Reevaluation: 21:10 (The case was discussed with the [facility] admitting team (HPI, physical exam, labs and diagnostic tests that were available at the time of disposition, ED course, treatment plan) on the phone. They agreed to transfer the patient to their service by ALS for further evaluation and treatment. --Bruno-. Authorization number is--[id number] 26 positive urine culture E coliHistory of kidney stones. Per [facility] doctor, creatinine baseline is a proximally 1.0. ) Reevaluation 2ND: Unchanged Patient Education/Counseling: Diagnosis, Treatment Family Education/Counseling: No Family Present Comments MDM: patient presented with the above HPI.--flank pain and urinary symptoms----workup was initiated. patient was found with the above mentioned diagnosis. the following medications were ordered: please refer to order lists of meds and tests obtained by myself Dr. Calderon. Patient ED course and VS have been stabilized. Patient has been reassessed in the ED and remained in a stable condition. Pertinent incidental findings were discussed with the patient and/or family. Patient/family voices understanding and is agreeable with plan. Patient has been observed in the ED adequate length of time to insure improv ement/stability. Escalation of care considered: Consideration of escalation to observation or admission Patient was given at least 2 L normal saline boluses and empiric antibiotics given her history Patient was transferred to [facility] per insurance requirement to the medicine team for further evaluation and treatment of their presentation. All the reports of any imaging studies that were ordered by myself were reviewed by myself. SEPSIS Sepsis Screen Date sepsis recognized/suspect: Sep 30, 2025 Time Sepsis recognized/suspect: 1826 Recent Procedure: No On Antibiotic Therapy: No Respiratory Rate >20: No Heart Rate >90: No Temp<36 C (96.8 F) or >38.3 C: No SBP <90 or MAP <65 mmHG: No New Acute Mental Status Change: No Is the patient on CPAP, BIPAP,: No Physician Orders Passenger Locomotive Engineer (09/30/25 ) Urinalysis (09/30/25 18:53) Ct Ab Pel Wo Con-No Oral Or Iv (09/30/25 18:53) Urine Bacterial Culture (09/30/25 18:53) Blood Culture (09/30/25 18:53) Imaging Transfer Request (09/30/25 22:19) Vital Signs Date Time Temp Pulse Resp B/P (MAP) Pulse Ox O2 Delivery O2 Flow Rate FiO2 09/30/25 23:16 97.5 57 16 153/80 (104) 99 97.5 09/30/25 21:47 74 18 98 Room Air* 0 21 09/30/25 21:39 103/62 09/30/25 21:19 98.4 74 16 103/62 (76) 94 98.4 09/30/25 18:27 98.3 95 16 135/56 82 98.3 Laboratory Tests Test 09/30/25 19:00 09/30/25 20:49 Lactic Acid Level 2.1 mmol/L (0.4-2.0) *H 2.3 mmol/L (0.4-2.0) *H White Blood Count 8.0 10^3/uL (4.4-10.8) Medications Medications Dose Ordered Sig/Toribio Route Start Time Stop Time Status Last Admin Dose Admin Ceftriaxone Sodium 50 ml @ 100 mls/hr ONCE ONCE IV 09/30/25 19:00 09/30/25 19:29 DC 09/30/25 21:35 Fentanyl Citrate 50 mcg ONCE ONCE IV 09/30/25 21:30 09/30/25 21:31 DC 09/30/25 21:39 Ondansetron HCl 4 mg ONCE ONCE IV 09/30/25 21:30 09/30/25 21:31 DC 09/30/25 21:37 Sodium Chloride 1,000 ml @ 1,000 mls/hr Q1H ONCE IV 09/30/25 20:00 09/30/25 20:59 DC 09/30/25 21:37 Departure 1 Departure Time of Disposition: 21:07 Impression: Primary Impression: Acute renal insufficiency Disposition: 02 [facility]ORT TERM [facility]OS[facility] Admit to: Tele Condition: Guarded Discharged With: Self Critical Care Note Critical Care Time?: Yes (45 min-critical care time only) Stability Stability form required: No I personally scribed for ABE CALDERON DO ([email or web address]) on 09/30/25 at 19:42. Electronically submitted by Zan Nowak ([email or web address]). I personally scribed for ABE CALDERON DO ([email or web address]) on 09/30/25 at 21:36. Electronically submitted by Zan Nowak ([email or web address]). ABE CALDERON DO Sep 30, 2025 19:42
--- NOTE | 2025-09-30 19:52 | DVH ---
Exam: CT CT AB PEL WO CON-NO ORAL OR IV History: Urinary retention, flank pain Comparison Study: CT ABDOMEN PELVIS WITHOUT on DOS: 11/19/24 Technique: Multidetector spiral CT of the abdomen was performed from lung bases to pubic symphysis. Imaging was performed without IV contrast. Axial, coronal and sagittal multiplanar reformats were obtained from the axial data set by the technologist. Radiation Dose : 1. Abdomen/Pelvis: CTDIvol 9.72 mGy, DLP 509.01 mGy*cm. Findings: Evaluation of solid organs is limited due to lack of intravenous contrast use. Lung Bases: No acute or significant lung base finding. Normal heart size. No pleural or pericardial effusion. Liver: The liver is normal in size. No focal lesions. Gallbladder and Biliary Tree: Gallbladder is surgically absent. Spleen: Unremarkable Pancreas: The pancreas is grossly normal in appearance. Adrenal Glands: Unremarkable Kidneys: Surgical clips surrounding the right kidney. No stones or hydronephrosis. Bladder: Grossly unremarkable for degree of distention. Bowel: The stomach is grossly normal in appearance. Small bowel and colon are normal in caliber and distribution. The appendix is not visualized; however, no secondary findings of acute appendicitis identified. Ascites: Absent Lymphadenopathy: No mesenteric, retroperitoneal or periportal lymphadenopathy. Abdominal Wall and Mesentery: Unremarkable. Vasculature: The visualized abdominal aorta is normal in size and caliber. Evaluation of abdominal and pelvic vessels is limited due to lack of intravenous contrast. Pelvic Organs: Unremarkable Musculoskeletal: No aggressive focal bony lesions, acute fractures or dislocation. IMPRESSION: Urinary bladder is nondistended. No hydronephrosis or other acute abnormality. Radiation optimization: All CT scans at this facility use at least one of these dose optimization techniques: automated exposure control mA and/or kV adjustment per patient size (includes targeted exams where dose is matched to clinical indication) or iterative reconstruction.
[2025-09-30 19:53] LABS: Hematocrit 39.3 % (36.0-46.0); Hemoglobin 13.2 g/dL (12.2-16.2); Mean Corpuscular Hemoglobin 29.2 pg (28.0-32.0); Mean Corpuscular Volume 87.0 fL (80.0-100.0); Nucleated Red Blood Cells % 0.0 %
[2025-09-30] MEDS ORDERED: SODIUM CHLORIDE 0.9% 1,000 ML IV ONE (20:00)
[2025-09-30 20:09] LABS: Alanine Aminotransferase 21 U/L (7-40); Albumin 4.4 g/dL (3.2-4.8); Alkaline Phosphatase 85 U/L (46-116); Anion Gap 13 (5-15); BUN/Creatinine Ratio 8.9 (10.0-20.0); Bilirubin, Total 0.6 mg/dL (0.2-1.0); Calcium 9.7 mg/dL (8.7-10.4); Carbon Dioxide 28 mmol/L (20-31); Glucose 86 mg/dL (74-106); Potassium 4.2 mmol/L (3.5-5.1); Sodium 138 mmol/L (136-145); Total Protein 7.5 g/dL (5.7-8.2)
[2025-09-30 20:10] LABS: Blood Urea Nitrogen 28 mg/dL (9-23); Chloride 97 mmol/L (98-107)
[2025-09-30 20:18] LABS: Lactic Acid w/Reflex 2.1 mmol/L (0.4-2.0)
[2025-09-30] MEDS: SODIUM CHLORIDE 0.9% 1,000 ML IV ONE (21:37)
[2025-09-30] MEDS: ONDANSETRON HCL 4 MG/2 ML VIAL IV ONE (21:37)
[2025-09-30] MEDS: fentaNYL CITRATE 100 MCG/2 ML VL IV ONE (21:39)
[2025-09-30 21:47] VITALS: PULSE 74; RESP 18; O2SAT 98
[2025-09-30 23:16] VITALS: BP 153/80; PULSE 57; RESP 16; TEMP 97.5; O2SAT 99
== END 2025-09-30 23:53 | disposition short-term general hospital (02) ==
LOC: ER 18:25
DX: N17.9 Acute kidney failure, unspecified (principal); I25.10 Atherosclerotic heart disease of native coronary artery without angina pectoris; I10 Essential (primary) hypertension; E78.5 Hyperlipidemia, unspecified; Z98.1 Arthrodesis status; Z90.710 Acquired absence of both cervix and uterus; Z90.5 Acquired absence of kidney; Z88.7 Allergy status to serum and vaccine; Z83.3 Family history of diabetes mellitus; Z87.440 Personal history of urinary (tract) infections; Z90.49 Acquired absence of other specified parts of digestive tract
CPT/HCPCS: 36415; 74176; 80053; 83605; 85025; 87040; 96365; 96375; 99291; J0696; J2405; J3010; J7030